=== PATIENT | male | born 1975 | race African-American/Black ===

== ENCOUNTER 2023-04-02 17:32 | Emergency (ER) | payer SELFPAY ==
[2023-04-02 19:05] VITALS: BP 184/106; PULSE 104; RESP 18; TEMP 98; O2SAT 99
[2023-04-02] MEDS: KETOROLAC TROMETH 60MG/2ML VIAL IM ONE (19:42)
[2023-04-02] MEDS ORDERED: HYDR-4902 PO (20:46)
[2023-04-02] MEDS ORDERED: CYCL-839 PO (20:46)
[2023-04-02] MEDS ORDERED: IBUP-1455 PO (20:46)
== END 2023-04-02 21:50 | disposition home or self-care (01) ==
LOC: EDBD 17:32 → ER 17:32
DX: S32.028A Other fracture of second lumbar vertebra, initial encounter for closed fracture (principal); R51.9 Headache, unspecified; M54.2 Cervicalgia; I10 Essential (primary) hypertension; E11.9 Type 2 diabetes mellitus without complications; V49.69XA Unspecified car occupant injured in collision with other motor vehicles in traffic accident, initial encounter; Y93.89 Activity, other specified; Y92.89 Other specified places as the place of occurrence of the external cause; Y99.8 Other external cause status
CPT/HCPCS: 70450; 71250; 72125; 72128; 72131; 74176; 96372; 99285; J1885